=== PATIENT | male | born 1950 | race Caucasian/White ===

== ENCOUNTER 2021-05-17 20:06 | Inpatient (IN) | payer MEDICARE ==
[~2021-05-17] VITALS: Ht 182.9 cm; Wt 90.2 kg
--- NOTE | 2021-05-17 20:23 | PHYS DOC ---
Adult General Chief Complaint Chief Complaint: SHORTNESS OF BREATH HPI HPI Patient is a 71-year-old male with a past medical history significant for CAD, and COPD who comes to the emergency department with a chief complaint of shortness of breath. States that it started a couple of days ago and has had a productive cough and some body aches. States that his daughter and her family are Covid positive as of last week. Review of Systems Review of Systems Review of systems otherwise unremarkable except noted in HPI Physical Exam Physical Exam Constitutional: Well developed, well nourished, no acute distress, appears ill HENT: Normocephalic, atraumatic, bilateral external ears normal, oropharynx dry, no oral exudates, nasal discharge [] Eyes, conjunctiva normal, no discharge. [] Neck: Normal range of motion, no tenderness, supple, no stridor. [] Cardiovascular: Sinus tachycardia Lungs & Thorax: Mild respiratory distress with increased work of breathing, borderline hypoxia around 90, bilateral rhonchi Abdomen: soft, no tenderness, no masses, no pulsatile masses. [] Skin: Warm, dry, no erythema, no rash. [] Extremities: No tenderness, no cyanosis, no clubbing, ROM intact, no edema. [] Neurologic: Alert and oriented X 3, normal motor function, normal sensory function, no focal deficits noted. [] Psychologic: Affect normal, judgement normal, mood normal. [] EKG EKG [] Radiology/Procedures Radiology/Procedures [] Heart Score C/O Chest Pain: No Risk Factors: Risk Factors: DM, Current or recent (<one month) smoker, HTN, HLP, family history of CAD, obesity. Risk Scores: Risk Factors: DM, Current or recent (<one month) smoker, HTN, HLP, family history of CAD, obesity. Course & Med Decision Making Course & Med Decision Making Patient is a 71-year-old male with multiple comorbidities who presents with shortness of breath and exposure to Covid from family member Vital signs notable for tachycardia, hypertension, tachypnea, borderline hypoxia. Physical exam noted above. EKG with a rate of 99, QRS of 112, QTc of 449, no STEMI. Troponin not concerning. Covid positive. Chest x-ray with bilateral pneumonia. Started on steroids, breathing treatment, heparin for anticoagulation given elevation in creatinine, antibiotics and fluid. Discussed all findings with patient and recommended admission to the hospital. Patient verbalized understanding and agreed with plan of admission. [] Dragon Disclaimer Dragon Disclaimer This electronic medical record was generated, in whole or in part, using a voice recognition dictation system. Departure Departure: Impression: Primary Impression: Respiratory distress Additional Impressions: Hypoxia COVID Pneumonia Disposition: 09 ADMITTED INPATIENT Admitting Physician: Da Valdes Condition: STABLE Referrals: NON,STAFF (PCP) Problem Qualifiers ESTEFANIA MAZARIEGOS MD May 17, 2021 20:23
[2021-05-17] MEDS ORDERED: DEXAMETHASONE 4 MG TABLET PO ONE (20:30)
[2021-05-17] MEDS ORDERED: IV RINGERS SOLUTION,LACTATED 1,000 ML IV ONE ×2 (20:30→22:15)
[2021-05-17] MEDS ORDERED: IPRATRPIUM/ALBUTEROL 0.5/2.5MG 3 ML NEBU. NEB ONE (20:30)
--- NOTE | 2021-05-17 21:09 | EKG ---
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
[2021-05-17 21:38] LABS: BASO % 0 % (0-3); EOS % 0 % (0-3); HEMATOCRIT 36.2 % (39.0-53.0); HEMOGLOBIN 11.9 g/dL (13.0-17.5); LYMPH # 0.3 x10^3/uL (1.0-4.8); LYMPH % 5 % (24-48); MEAN CORPUSCULAR HEMOGLOBIN 30 pg (25-35); MEAN CORPUSCULAR HGB CONC 33 g/dL (31-37); MEAN CORPUSCULAR VOLUME 91 fL (79-100); MONO # 0.4 x10^3/uL (0.0-1.1); MONO % 6 % (0-9); NEUT # 5.8 x10^3uL (1.8-7.7); NEUT % 89 % (31-73); PLATELET COUNT 293 x10^3/uL (140-400); RED BLOOD COUNT 3.96 x10^6/uL (4.30-5.70); RED CELL DISTRIBUTION WIDTH 15.8 % (11.5-14.5); WHITE BLOOD COUNT 6.6 x10^3/uL (4.0-11.0)
[2021-05-17 21:46] LABS: CALCIUM 8.9 mg/dL (8.5-10.1); CREATININE 1.4 mg/dL (0.7-1.3); GFR 50.2; POTASSIUM 4.4 mmol/L (3.5-5.1)
[2021-05-17 21:53] LABS: INFLUENZA A PATIENT NEGATIVE (NEGATIVE); INFLUENZA B PATIENT NEGATIVE (NEGATIVE)
[2021-05-17 21:58] LABS: ALBUMIN 2.8 g/dL (3.4-5.0); ALBUMIN/GLOBULIN RATIO 0.6 (1.0-1.7); C REACTIVE PROTEIN 56.5 mg/L (0-3.3); MAGNESIUM 2.1 mg/dL (1.8-2.4); TOTAL BILIRUBIN 1.9 mg/dL (0.2-1.0); TOTAL PROTEIN 7.7 g/dL (6.4-8.2)
[2021-05-17] MEDS ORDERED: HEPARIN for SUB-Q USE 5,000 UNIT/ML VIAL. SQ ONE (22:00)
[2021-05-17] MEDS ORDERED: ONDANSETRON PF 4 MG/2 ML VIAL. IVP PRN (22:15)
--- NOTE | 2021-05-17 22:37 | RAD ---
Exam: Chest one view INDICATION: Shortness of breath TECHNIQUE: Frontal view of the chest Comparisons: None FINDINGS: The cardiomediastinal silhouette and pulmonary vessels are within normal limits. Perihilar interstitial airspace disease. No pleural effusion. IMPRESSION: Findings likely related to pulmonary edema versus atypical infectious process. Electronically signed by: Avi Argueta MD (05/17/2021 10:35 PM) KATIE
[2021-05-18] MEDS: ALBUTEROL SULFATE 8GM INHALER. INH SCH ×4 (09:11→20:29)
[2021-05-18 12:57] LABS: BASO % 1 % (0-3); EOS % 0 % (0-3); HEMATOCRIT 30.5 % (39.0-53.0); HEMOGLOBIN 10.1 g/dL (13.0-17.5); LYMPH # 0.5 x10^3/uL (1.0-4.8); LYMPH % 13 % (24-48); MEAN CORPUSCULAR HEMOGLOBIN 29 pg (25-35); MEAN CORPUSCULAR HGB CONC 33 g/dL (31-37); MEAN CORPUSCULAR VOLUME 89 fL (79-100); MONO # 0.3 x10^3/uL (0.0-1.1); MONO % 8 % (0-9); NEUT # 3.3 x10^3uL (1.8-7.7); NEUT % 79 % (31-73); PLATELET COUNT 261 x10^3/uL (140-400); RED BLOOD COUNT 3.45 x10^6/uL (4.30-5.70); WHITE BLOOD COUNT 4.1 x10^3/uL (4.0-11.0)
[2021-05-18 13:12] LABS: ALBUMIN 2.3 g/dL (3.4-5.0); ALBUMIN/GLOBULIN RATIO 0.6 (1.0-1.7); CALCIUM 7.9 mg/dL (8.5-10.1); CREATININE 1.3 mg/dL (0.7-1.3); GFR 54.7; POTASSIUM 4.2 mmol/L (3.5-5.1); TOTAL PROTEIN 6.3 g/dL (6.4-8.2)
[2021-05-18] MEDS ORDERED: IV NORMAL SALINE 50ML 50 ML ONE (13:26)
[2021-05-18] MEDS ORDERED: cefTRIAXone SODIUM 1 GM VIAL ONE (13:26)
[2021-05-18] MEDS: HEPARIN for SUB-Q USE 5,000 UNIT/ML VIAL. SQ SCH ×2 (13:42→20:38)
[2021-05-18] MEDS: DEXAMETHASONE SOD PHOS 10 MG/ML VIAL. IVP SCH (13:43)
--- NOTE | 2021-05-18 18:36 | NUR ---
Nsg Note; admission admit to room 115 at 1820 via cart accomp by ems personnel. Pt is covid positive and placed in isolation. Pt is requesting a drink and some soup.
[2021-05-18 18:42] VITALS: BP 148/82
[2021-05-18 22:57] VITALS: BP 131/76
[2021-05-18] MEDS ORDERED: no home meds (23:36)
--- NOTE | 2021-05-19 04:39 | NUR ---
During admission assessments pt told this nurse that he lives in his car in [facility]. Pt also states that he has diabetes but he does not take any medications at all.
[2021-05-19] MEDS: HEPARIN for SUB-Q USE 5,000 UNIT/ML VIAL. SQ SCH ×3 (05:54→23:28)
[2021-05-19 06:07] VITALS: BP 125/78
[2021-05-19] MEDS: DEXAMETHASONE SOD PHOS 10 MG/ML VIAL. IVP SCH (08:00)
[2021-05-19 08:01] LABS: BASO % 0 % (0-3); EOS % 0 % (0-3); HEMATOCRIT 31.6 % (39.0-53.0); HEMOGLOBIN 10.5 g/dL (13.0-17.5); LYMPH # 0.8 x10^3/uL (1.0-4.8); LYMPH % 12 % (24-48); MEAN CORPUSCULAR HEMOGLOBIN 30 pg (25-35); MEAN CORPUSCULAR HGB CONC 33 g/dL (31-37); MEAN CORPUSCULAR VOLUME 90 fL (79-100); MONO # 0.4 x10^3/uL (0.0-1.1); MONO % 6 % (0-9); NEUT # 5.4 x10^3uL (1.8-7.7); NEUT % 81 % (31-73); PLATELET COUNT 263 x10^3/uL (140-400); RED CELL DISTRIBUTION WIDTH 16.1 % (11.5-14.5); WHITE BLOOD COUNT 6.6 x10^3/uL (4.0-11.0)
[2021-05-19] MEDS: ALBUTEROL SULFATE 8GM INHALER. INH SCH ×4 (08:02→20:00)
[2021-05-19 08:17] LABS: ALBUMIN 2.3 g/dL (3.4-5.0); ALBUMIN/GLOBULIN RATIO 0.6 (1.0-1.7); CALCIUM 8.3 mg/dL (8.5-10.1); CREATININE 1.2 mg/dL (0.7-1.3); POTASSIUM 4.2 mmol/L (3.5-5.1); TOTAL BILIRUBIN 0.8 mg/dL (0.2-1.0); TOTAL PROTEIN 6.3 g/dL (6.4-8.2)
[2021-05-19] MEDS ORDERED: BENZOCAINE/MENTHOL LOZNGE 18'S BOX. PO PRN (10:00)
[2021-05-19 11:56] VITALS: BP 122/81
--- NOTE | 2021-05-19 13:13 | NUR ---
Wound/Ostomy Care Wound Type/Assessment: Wound care consult for blisters to RLE. Pt has 2 open blisters to right lateral lower leg and on 1 on right dorsal foot. Cleansed, measured and redressed wounds. Pt has hemosiderin staining to BLE as well as pitting edema. No redness, heat or inflammation noted. Treatment Recommendations/Plan: Cleanse wounds, cover with contact layer, ABD and kerlix then apply size G medigrip. Encourage elevation at all times. Change every 2-3 days and as needed for drainage Education provided: WC POC, PU prevention and importance of elevation and compression Offloading surface/device: TQ2H, pt is a self turn, float heels Recommended Referrals/Tests: Patient would benefit from vascular workup as outpatient Discharge Recommendations for dressings: see above
[2021-05-19] MEDS ORDERED: FUROSEMIDE 40 MG/4 ML VIAL IVP ONE (15:30)
[2021-05-19 15:38] VITALS: BP 137/88
--- NOTE | 2021-05-19 16:44 | RAD ---
EXAM: Bilateral lower extremity venous Doppler. HISTORY: Bilateral lower extremity pain/swelling. COMPARISON: None. FINDINGS: Grayscale and Doppler analysis of the both lower extremity deep venous systems was performe d with graded compression and augmentation. The common femoral, greater saphenous, superficial femora l, popliteal and calf veins were assessed. There is no evidence of deep venous thrombosis. The right distal calf could not be assessed given ove rlying bandaging. Subcutaneous edema is noted. IMPRESSION: 1. No evidence of deep venous thrombosis. Electronically signed by: Kayode Ortiz MD (05/19/2021 4:42 PM) [id number]
[2021-05-19 20:01] VITALS: BP 123/78
[2021-05-19] MEDS: LACTOBACILLUS RHAMNOSUS GG 1 CAPSULE. PO SCH (21:00)
[2021-05-19] MEDS: MELATONIN 3 MG TABLET PO PRN (21:40)
[2021-05-19 23:23] VITALS: BP 155/64
--- NOTE | 2021-05-20 03:35 | PN ---
DATE: 05/19/2021 SUBJECTIVE: The patient is resting, slightly propped up in bed, in no apparent distress. He continued to complain of cough and shortness of breath, generalized weakness. PHYSICAL EXAMINATION: GENERAL: When I examined him this afternoon, he was somewhat pale, no jaundice, cyanosis or thyromegaly. No jugular venous distention. No limb edema. VITAL SIGNS: His heart rate was 76, blood pressure is 122/81, temperature was 98, respiratory rate was 20 and oxygen saturation was 96% on 4 liters of oxygen. HEAD, EYES, EARS, NOSE AND THROAT: Normocephalic, atraumatic. NECK: Supple. HEART: Showed normal first and second heart sounds. No gallop or murmur. CHEST: Shows central trachea, equal bilateral expansion, air entry, vesicular breath sounds with bilateral basal crepitation and a few scattered rhonchi. ABDOMEN: Distended, soft, nontender. NEUROLOGIC: He was grossly intact. His intake and output incompletely recorded. LABORATORY DATA: This morning showed a serum sodium 131, potassium 4.2, chloride 96, bicarbonate 22, anion gap of 13, BUN 21, creatinine 1.3. Estimated GFR was 60 mL per minute. His glucose 108, calcium was 8.3. Total bilirubin, AST, ALT, alkaline phosphatase were normal. Total protein 6.3, albumin 2.3. His white cell count was 6,600, hemoglobin 10.5, hematocrit 32, MCV 90 and platelet count 263,000. His blood cultures showed no growth after 1 day. ASSESSMENT: 1. COVID-19 pneumonia. 2. Possible superimposed community-acquired pneumonia. 3. Chronic obstructive pulmonary disease exacerbation. 4. Acute hypoxic respiratory failure. 5. Acute diastolic congestive heart failure. The patient has multiple medical problems. He stated that he actually stopped all his medications on his own, he has cerebrovascular accident, hypertension, hyperlipidemia, type 2 diabetes, coronary artery disease, benign prostatic hypertrophy. PLAN: My plan is to add Lasix 40 mg IV once a day and then tomorrow and see how he responds to that. DAVY MEDINA: Christy TID: [id number]
[2021-05-20 06:10] VITALS: BP 119/86
[2021-05-20] MEDS: HEPARIN for SUB-Q USE 5,000 UNIT/ML VIAL. SQ SCH (06:38)
[2021-05-20] MEDS: ALBUTEROL SULFATE 8GM INHALER. INH SCH ×5 (08:00→20:00)
[2021-05-20] MEDS: DEXAMETHASONE SOD PHOS 10 MG/ML VIAL. IVP SCH (08:45)
[2021-05-20] MEDS: FUROSEMIDE 40 MG/4 ML VIAL IVP SCH (08:45)
[2021-05-20] MEDS: LACTOBACILLUS RHAMNOSUS GG 1 CAPSULE. PO SCH ×2 (08:45→21:23)
[2021-05-20 08:48] LABS: CALCIUM 8.3 mg/dL (8.5-10.1); CREATININE 1.2 mg/dL (0.7-1.3); POTASSIUM 3.8 mmol/L (3.5-5.1)
--- NOTE | 2021-05-20 10:58 | NUR ---
NURSE NOTE PT MEDS PASSED AND ASSESSMENT DONE. PT DENIES ANY PAIN OR DISCOMFORT. PT STATES HE IS UNHAPPY BECAUSE THE STAFF HAVE TOLD HIM THAT HE CAN DO MORE THAN HE IS ABLE TO. PT STATES HE LIVES IN [facility] ALONE IN HIS VAN BUT IS HERE VISITING HIS DAUGHTER. THIS RN DISCUSSED CONCERNS WITH PT AND ASKED HOW HE USES BATHROOM AT HOME. PT STATED "I GO IN THE STORE AND USE IT OR WEAR DIAPERS AND CHANGE MYSELF." THIS RN ASKED PT IF HE COULD USE URINAL FOR I&O RECORD AND PT STATED "WOULD YOU LIKE TO SEE MY PENIS?! 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 PT SEEMED AGITATED BUT EVENTUALLY BECOME SATISFIED THROUGHOUT CONVERSATION. PT IS NOW USING URINAL CONSISTENTLY. ALL NEEDS MET AT THIS TIME.
[2021-05-20] MEDS: ENOXAPARIN 40 MG/0.4 ML SYRINGE. SQ SCH (15:00)
[2021-05-20] MEDS: ZINC SULFATE 220 MG CAPSULE. PO SCH (15:19)
[2021-05-20] MEDS: ASCORBIC ACID 1,000 MG TABLET PO SCH (15:19)
[2021-05-20 15:58] VITALS: BP 130/86
[2021-05-20 19:00] VITALS: BP 133/86
[2021-05-20] MEDS: POTASSIUM CHLORIDE 20 MEQ TABLET.ER. PO SCH (21:23)
[2021-05-20] MEDS: MELATONIN 3 MG TABLET PO PRN (21:23)
--- NOTE | 2021-05-20 22:06 | PN ---
DATE: 05/20/2021 SUBJECTIVE: The patient is resting, slightly propped up in bed, in no apparent respiratory distress. He is awake, alert. On questioning him, he continued to complain of shortness of breath, cough with whitish sputum. Continued to complain of pain in his legs and generalized weakness. PHYSICAL EXAMINATION: GENERAL: When examining him this afternoon, he looked well, pale, not jaundiced or cyanosed, no lymphadenopathy, no thyromegaly, no jugular venous distention, no limb edema. VITAL SIGNS: His heart rate was 76, blood pressure was 119/86, temperature 97.7, respiratory rate was 18 and oxygen saturation was 98% on 3 liters of oxygen. HEAD, EYES, EARS, NOSE, AND THROAT: Normocephalic, atraumatic. NECK: Supple. HEART: Showed normal first and second heart sounds, no gallop or murmur. CHEST: Showed central trachea, equal bilateral expansion, air entry, vesicular breath sounds, bilateral basal crepitation. I could not appreciate any rhonchi. ABDOMEN: Distended, soft, nontender. NEUROLOGIC: He was grossly intact. He has bilateral chronic venous stasis. His intake over the last 24 hours was 1350, no output was recorded. LABORATORY DATA: As of this morning, his serum sodium was 133, potassium 3.8, chloride 99, bicarbonate 25, anion gap of 9, BUN 23, creatinine 1.2. Estimated GFR was 60 mL per minute. His glucose was 111, calcium was 8.3. ASSESSMENT: 1. COVID-19 pneumonia. 2. Possible superimposed community-acquired pneumonia. 3. Chronic obstructive pulmonary disease. 4. Acute hypoxic respiratory failure. 5. Acute diastolic congestive heart failure. 6. The patient has multiple other medical problems including: A. Type 2 diabetes mellitus. B. Hypertension. C. Hyperlipidemia. D. Benign prostatic hypertrophy. E. Coronary artery disease. F. Cerebrovascular accident. PLAN: To continue with antibiotic. Continue with dexamethasone. Continue with IV Lasix. I will add some potassium also and change his heparin to Lovenox. MILANA/IVETT DR: Christy TID: [id number]
[2021-05-20 23:00] VITALS: BP 132/87
[2021-05-21 07:49] VITALS: BP 163/111
[2021-05-21] MEDS: ALBUTEROL SULFATE 8GM INHALER. INH SCH ×4 (08:00→20:00)
[2021-05-21] MEDS: FUROSEMIDE 40 MG/4 ML VIAL IVP SCH (08:07)
[2021-05-21] MEDS: ASCORBIC ACID 1,000 MG TABLET PO SCH (08:08)
[2021-05-21] MEDS: ZINC SULFATE 220 MG CAPSULE. PO SCH (08:08)
[2021-05-21] MEDS: DEXAMETHASONE SOD PHOS 10 MG/ML VIAL. IVP SCH (08:08)
[2021-05-21] MEDS: LACTOBACILLUS RHAMNOSUS GG 1 CAPSULE. PO SCH ×2 (08:08→21:19)
[2021-05-21] MEDS: POTASSIUM CHLORIDE 20 MEQ TABLET.ER. PO SCH ×2 (08:08→21:20)
[2021-05-21] MEDS: LISINOPRIL 10 MG TABLET PO SCH (08:30)
[2021-05-21] MEDS ORDERED: BUDESONIDE 0.5 MG/2 ML NEBU NEB SCH (08:30)
[2021-05-21] MEDS: METOPROLOL TART IMMED RELEASE 50 MG TABLET PO SCH ×2 (08:52→21:20)
[2021-05-21 09:00] VITALS: BP 180/110
--- NOTE | 2021-05-21 10:43 | NUR ---
NURSE NOTE UPON ASSESSMENT, PT RR WAS 24, AUDIBLE WHEEZING, TACHYCARDIAC IN 120s, AND HYPERTENSIVE AT 180/110. PT VITAL SIGNS HAD NOT BEEN TAKEN FOR 0700 YET SO VITALS WERE OBTAINED BY [employer] CONDITIONING INSTALLER. AFTER REPORT OF HTN, THIS RN MANUALLY TOOK BP AND RESULTED IN SAME HYPERTENSIVE VALUE. MD NOTIFIED OF VITALS. METOPROLOL AND LISINOPRIL GIVEN PER MD ORDER. THIS RN TOOK VITALS AGAIN 1HR LATER. PT BP IS NOW 137/93, HEART RATE 78, RR 19 AND SAT 94% OF 2L. PT OUTPUT HAS BEEN >30ML/HR. PT AMBULATED TO CHAIR WITH WALKER AND 2 PERSON ASSIST. PT WEAK AND SOB WITH AMBULATION BUT EVENTUALLY BECOMES STEADY WITH REGULAR BREATHS. PT STATES HE WANTS TO REQUEST TO BE DISCHARGED SO THAT HE CAN LEAVE FOR HIS FLIGHT BACK TO [place] ON SATURDAY. THIS RN EXPLAINED COVID PRECAUTIONS AND ISOLATION. PT SAYS HE IS READY TO GO BACK TO HIS STATE. PT UP IN CHAIR, CALL LIGHT WITHIN REACH, WATCHING TV. ALL NEEDS MET AT THIS TIME.
[2021-05-21 10:55] VITALS: BP 137/93
[2021-05-21] MEDS: ENOXAPARIN 40 MG/0.4 ML SYRINGE. SQ SCH (15:00)
[2021-05-21 15:27] VITALS: BP 110/73
[2021-05-21 20:41] VITALS: BP 115/77
[2021-05-21] MEDS: MELATONIN 3 MG TABLET PO PRN (21:20)
--- NOTE | 2021-05-21 21:41 | PN ---
DATE: 05/21/2021 SUBJECTIVE: The patient is sitting comfortably in his chair, in no apparent distress. He was tachycardic and hypertensive this morning. We did start him on metoprolol and lisinopril and he did actually well. PHYSICAL EXAMINATION: GENERAL: When I saw him this afternoon, he looked well and was clearly in no apparent respiratory distress. He was pale, not jaundiced or cyanosed. No lymphadenopathy. No thyromegaly. No jugular venous distention. No limb edema. VITAL SIGNS: His heart rate was 78, blood pressure was 137/93, temperature was 97.6, respiratory rate was 19, and oxygen saturation was 97% on 2 liters of oxygen. We cut down his oxygen supply to 1 liter and he was maintaining his oxygen at 97%. HEAD, EYES, EARS, NOSE, AND THROAT: Normocephalic, atraumatic. NECK: Supple. HEART: Showed normal first and second heart sounds. No gallop, rub, or murmur. CHEST: Shows central trachea, equal bilateral chest expansion, air entry, vesicular breath sounds, and very few bilateral basal crepitation. ABDOMEN: Distended, soft, nontender. NEUROLOGIC: He was grossly intact. His intake was 1616, no output was recorded. LABORATORY DATA: His lab work this morning showed a serum sodium of 133, potassium of 3.8, chloride 99, bicarbonate 25, anion gap of 9, BUN 23, creatinine 1.2. Estimated GFR was 60 mL per minute. His glucose 111, calcium was 8.3. His white cell count was 6600, hemoglobin 11, hematocrit 32, MCV 90, and platelet count 263,000. ASSESSMENT: 1. COVID-19 pneumonia. 2. Possible superimposed community-acquired pneumonia. 3. Chronic obstructive pulmonary disease exacerbation. 4. Acute hypoxic respiratory failure. 5. Acute diastolic congestive heart failure. 6. The patient has multiple other medical problems that include according to him: A. Type 2 diabetes mellitus. B. Hypertension. C. Hyperlipidemia. D. Benign prostatic hypertrophy. E. Coronary artery disease. F. Cerebrovascular accident. PLAN: To continue with antibiotic. Continue with dexamethasone. Continue with IV Lasix. I will add potassium. Continue with Lovenox for DVT prophylaxis. We will evaluate him tomorrow and he probably can be discharged home after doing 6-minute walk. KRISS/MAGDALENA DR: KRISS/jonathan TID: [id number]
[2021-05-22 00:20] VITALS: BP 117/77
[2021-05-22 06:18] VITALS: BP 143/88
[2021-05-22 06:26] LABS: CALCIUM 8.5 mg/dL (8.5-10.1); CREATININE 1.3 mg/dL (0.7-1.3); GFR 54.7; POTASSIUM 4.1 mmol/L (3.5-5.1)
[2021-05-22] MEDS: ALBUTEROL SULFATE 8GM INHALER. INH SCH ×2 (08:37→12:00)
[2021-05-22] MEDS: LACTOBACILLUS RHAMNOSUS GG 1 CAPSULE. PO SCH (08:38)
[2021-05-22] MEDS: ASCORBIC ACID 1,000 MG TABLET PO SCH (08:38)
[2021-05-22] MEDS: DEXAMETHASONE SOD PHOS 10 MG/ML VIAL. IVP SCH (08:38)
[2021-05-22] MEDS: FUROSEMIDE 40 MG/4 ML VIAL IVP SCH (08:38)
[2021-05-22] MEDS: LISINOPRIL 10 MG TABLET PO SCH (08:38)
[2021-05-22] MEDS: POTASSIUM CHLORIDE 20 MEQ TABLET.ER. PO SCH (08:38)
[2021-05-22] MEDS: ZINC SULFATE 220 MG CAPSULE. PO SCH (08:38)
[2021-05-22] MEDS: METOPROLOL TART IMMED RELEASE 50 MG TABLET PO SCH (08:39)
--- NOTE | 2021-05-22 09:40 | NUR ---
Nursing note PT in bed, verbalized no pain or shortness of breath. PT stated, hope I will be discharged today, RN told PT when doctor comes in he will decide if he should be discharge. Assessments done, medications administered per doctors orders. Bed low, call light within reach, PT verbalized no other needs. Will continue to monitor.
[2021-05-22 11:13] VITALS: BP 112/77
[2021-05-22 15:06] VITALS: BP 113/73
[2021-05-22] MEDS ORDERED: LEVO500T9 PO (15:30)
[2021-05-22] MEDS ORDERED: POTA20TA4 PO (15:30)
[2021-05-22] MEDS ORDERED: ALBU2.5V8 IH (15:30)
[2021-05-22] MEDS ORDERED: FURO-68 PO (15:30)
[2021-05-22] MEDS ORDERED: METO50TA6 PO (15:30)
[2021-05-22] MEDS ORDERED: LISI10TA16 PO (15:30)
[2021-05-22] MEDS ORDERED: DEXA6TAB6 PO (15:30)
--- NOTE | 2021-05-22 17:29 | NUR ---
Nursing notes PT discharged from the facility to go home on Saturday. PT was alert and oriented during discharge, discharge papers and teaching given PT. PT assisted of the floor by the nurse and picked up from the hospital by his family.
--- NOTE | 2021-05-26 11:58 | HP ---
DATE OF SERVICE: 05/19/2021 ADMIT DATE: 05/17/2021 SUBJECTIVE: The patient is a 71-year-old male patient who presented to the Emergency Room with chief complaint of shortness of breath. He states that it started a couple of days ago, has had a productive cough and some body aches. He states that his daughter and her family are COVID positive as of last week. He was extensively investigated in the Emergency Room and has had lab work and imaging studies. His lab work showed that his white cell count was 6600, he has normochromic normocytic anemia and normal platelet count. His blood gases showed a pH of 7.49, pCO2 of 29. His D-dimer was high at 4028 with normal prothrombin time, INR and APTT. His chemistry on arrival showed hyponatremia and his beta natriuretic peptide was 33,292. His influenza A and B were negative. His SARS-CoV-2 antigens rapid testing was positive. His chest x-ray showed finding likely related to pulmonary edema versus atypical infectious process. The patient was admitted with the diagnosis of hypoxic respiratory failure, pneumonia, and was treated with dexamethasone, levofloxacin and heparin. Unfortunately, the patient apparently stayed in the Emergency Room for almost more than 24 hours. PAST MEDICAL HISTORY: Significant for hypertension, hyperlipidemia, type 2 diabetes mellitus, coronary artery disease, benign prostatic hypertrophy, chronic obstructive pulmonary disease and type 2 diabetes mellitus. PAST SURGICAL HISTORY: Significant for left heart catheterization and left knee arthroscopic surgery. ALLERGIES: He is allergic to BEE VENOM AND INFLUENZA VIRUS VACCINE. MEDICATIONS: He is currently on no medication. FAMILY HISTORY: He has two sisters, one older and one younger brother, still alive. His older sister has diabetes and bilateral amputation of her lower extremities. He has 4 brothers, two older, both and 2 younger still alive, one of the older brother of alcoholism and the other of cancer. His father at age of 56 because of the kidney cancer. Mother at age of 84, has had multiple cerebrovascular accidents as well as myocardial infarction. SOCIAL HISTORY: He is twice. He has 2 daughters and 1 son. He quit smoking in 2018. He quit drinking in 2018. He worked at ___. He retired in 2016. He actually used to live with his brother and currently homeless, living in his car for the last year and a half. REVIEW OF SYSTEMS: As per history of present illness. PHYSICAL EXAMINATION: GENERAL: On arrival to the Emergency Room, the patient was somewhat pale, no jaundice, cyanosis, no lymphadenopathy, no thyromegaly, no jugular venous distention. No limb edema. He has bilateral lower extremity edema. VITAL SIGNS: His heart rate was 70, blood pressure is 119/83, temperature was 98.9, respiratory rate was 26 and oxygen saturation was 98% on 4 liters of oxygen. HEAD, EYES, EARS, NOSE, AND THROAT: Normocephalic, atraumatic. NECK: Supple. HEART: Showed normal first and second heart sounds. No gallop or murmur. CHEST: Showed central trachea, equal bilateral chest expansion, air entry, vesicular breath sounds with bilateral basal crepitation and scattered wheezing. ABDOMEN: Distended, soft, nontender. NEUROLOGIC: He is awake, alert, responding appropriately. Cranial nerves intact. He moves extremities without difficulty. His lab work on admission showed a white cell count 6600, hemoglobin 12, hematocrit 36, MCV 91, and a platelet count 293,000. His chemistry showed a serum sodium 127, potassium 4.4, chloride 93, bicarbonate 21, anion gap of 13, BUN 18, creatinine 1.4, estimated GFR was 50 mL per minute, his glucose 129, calcium was 8.9, magnesium was 2.1. Total bilirubin slightly high as well as AST, ALT, alkaline phosphatase are normal. C-reactive protein was 56.5. Beta natriuretic peptide was 33,292. Total protein 7.7, albumin was 2.8. ASSESSMENT AND PLAN: The patient was admitted with COVID-19 infection, questionable COVID-19 pneumonia versus community-acquired pneumonia, acute hypoxic respiratory failure, he probably have also congestive heart failure. PLAN: Obviously to continue with IV antibiotic. Continue with bronchodilator. Continue with heparin drip as well as dexamethasone. RED DR: Christy TID: [id number]
== END 2021-05-22 17:36 | disposition home or self-care (01) | DRG 177 ==
LOC: ER 20:06 → ER HOLD 22:07 → 1 SOUTH 05-18 16:51
PROVIDERS: ADMIT Internal Medicine; ATTEND Internal Medicine
DX: U07.1 COVID-19 (principal); J96.01 Acute respiratory failure with hypoxia; J12.82 Pneumonia due to coronavirus disease 2019; I50.31 Acute diastolic (congestive) heart failure; E87.1 Hypo-osmolality and hyponatremia; J44.0 Chronic obstructive pulmonary disease with (acute) lower respiratory infection; J44.1 Chronic obstructive pulmonary disease with (acute) exacerbation; D64.9 Anemia, unspecified; E11.9 Type 2 diabetes mellitus without complications; E78.5 Hyperlipidemia, unspecified; I11.0 Hypertensive heart disease with heart failure; I25.10 Atherosclerotic heart disease of native coronary artery without angina pectoris; N40.0 Benign prostatic hyperplasia without lower urinary tract symptoms; Z80.51 Family history of malignant neoplasm of kidney; Z82.49 Family history of ischemic heart disease and other diseases of the circulatory system; Z83.3 Family history of diabetes mellitus; Z87.891 Personal history of nicotine dependence
CPT/HCPCS: 36415; 71045; 80048; 80053; 82803; 83605; 83735; 83880; 84484; 85025; 85379; 85610; 85730; 86140; 87040; 87428; 93005; 93970; 94640; 96361; 96365; 96366; 96368; 96372; 96375; J0696; J1100; J1644; J1650; J1940; J1956; J7120; J8540; U0003; 97110; 97116; 97530; 99285-25